=== PATIENT | male | born 1990 | race Caucasian/White ===

== ENCOUNTER 2016-07-22 11:00 | Inpatient (IN) | payer OTHER ==
--- NOTE | ~2016-07-22 | PN ---
Unit #: [id number] #: [id number] Patient: DAMIAN OWENS [id number] [facility] [address] [place] [address] [id number] MR#: [id number] NAME: DAMIAN OWENS ROOM: P176 Age: 26 Sex: M Admission Date: 07/22/2016 : 1990 Attending Physician: Dorothea Bryson M.D. Admitting Physician: Dorothea Bryson M.D. Primary Care Physician: [place] Doctor Not In System [facility] PROGRESS NOTES DATE OF SERVICE: 07/24/2016 SUBJECTIVE Mr. Owens is a 26-year-old white male with substance abuse and mood disorder, who was seen today and chart was reviewed and case was discussed with the staff. He was seen to be anxious, restless, withdrawn, unkempt, disheveled, and seclusive to himself and reports that he is not feeling good and "all I want is sleep." However, he has not shown any agitation or aggression and has been taking the medications and tolerating them fairly well with no reported side effects. MENTAL STATUS EXAMINATION Young white male who was casually dressed with fair personal hygiene, appears to be in no acute distress or discomfort. He was awake and alert on interaction with intact orientation. His mood was anxious with a congruent affect. He denies any suicidal or homicidal ideations, and also denies any auditory or visual hallucinations. His insight and judgment remain slightly impaired. TREATMENT PLAN 1. We will continue him on his current treatment protocol. We will monitor his response to the medications and make further adjustments as needed. 2. We will continue to follow up. Dictated by... Marina Valle/christian TD: 07/24/2016 07:33 JOB #: [id number] Unit #: [id number] #: [id number] Patient: DAMIAN OWENS PROGRESS NOTES Page 1 of 1 X Dorothea Bryson MD X PROGRESS NOTE
--- NOTE | ~2016-07-22 | PN ---
Unit #: [id number] #: [id number] Patient: DAMIAN OWENS [id number] [facility] [address] [place] [address] [id number] MR#: [id number] NAME: DAMIAN OWENS ROOM: P180 Age: 26 Sex: M Admission Date: 07/22/2016 : 1990 Attending Physician: Dorothea Bryson M.D. Admitting Physician: Dorothea Bryson M.D. Primary Care Physician: Generic Doctor Not In System [facility] PROGRESS NOTES DATE OF SERVICE: 07/27/2016 SUBJECTIVE Mr. Owens is a 26-year-old white male, who was seen today and chart was reviewed, and case was discussed with the staff. He has been anxious, withdrawn, and reports doing better on his detox and complaining of persistent depressive symptoms with feelings of hopelessness and low energy, and Celexa has been initiated, but he stated that he does not feel like it is helping that he needs something just to increase in energy level and has been requesting the stimulating antidepressant. MENTAL STATUS EXAMINATION Young white male, who was casually dressed with fair personal hygiene, appears to be in no acute distress or discomfort. He was awake and alert on interaction with intact orientation. His mood was anxious and depressed with a congruent affect. His speech was slow and goal directed. He reports he denies any suicidal or homicidal ideations and also denies any auditory or visual hallucinations. His insight and judgment remain slightly impaired. TREATMENT PLAN 1. We will continue him on his current medications and treatment protocol. We will monitor his response to medications and make further adjustments as needed. 2. We will continue to follow up. Dictated by... Marina Valle/christian TD: 07/27/2016 22:16 JOB #: [id number] Unit #: [id number] #: [id number] Patient: DAMIAN OWENS PROGRESS NOTES Page 1 of 1 X Dorothea Bryson MD PROGRESS NOTE
--- NOTE | ~2016-07-22 | PA ---
Unit #: [id number] #: [id number] Patient: DAMIAN OWENS [id number] [facility] [address] [place] [address] [id number] MR#: [id number] NAME: DAMIAN OWENS ROOM: P176 Age: 26 Sex: M Admission Date: 07/22/2016 : 1990 Date of Assessment: 07/22/2016 Attending Physician: Dorothea Bryson M.D. Admitting Physician: Dorothea Bryson M.D. Primary Care Physician: Generic Doctor Not In System PSYCHIATRIC ASSESSMENT DATE OF SERVICE 07/22/2016. IDENTIFYING DATA Mr. Owens is a 26-year-old, single, white male, who is a resident of [place], [place], and he is known to us from previous encounter, was self referred to the hospital on a voluntary basis. CHIEF COMPLAINT "To finish what I started." HISTORY OF PRESENT ILLNESS Mr. Owens is a 26-year-old white male with a history of mood disorder, who presented and was seen to be irritable, but cooperative and answered questions appropriately and was endorsing suicidal ideation and plan to finish what he started and he will not contract for safety upon presentation and denied any homicidal ideations, though does report increasing depression, anxiety, agitation, irritability, feelings of hopelessness and helplessness, and suicidal ideations and stated that he more recently was employed through a travel in [employer] and reports that he stayed in the [place] area and the [employer] moved on and does report feelings of hopelessness and having attempted suicide a couple of weeks ago via overdose on methamphetamine. He was seen to be a significant danger to self and as such, recommendation for inpatient level of care for safety and stabilization was made and the patient was transferred to us. SUBSTANCE ABUSE HISTORY The patient reports history of opioid and methamphetamine abuse, and reports using IV methamphetamine with the last use a couple of days ago. He denies any recent opioid abuse. PAST PSYCHIATRIC HISTORY The patient has not had any prior inpatient or outpatient psychiatric treatment. Review of the medical records indicate that he is currently not active in any treatment program, and is not seeing a psychiatrist, and is not taking any psychotropic medications. PAST MEDICAL HISTORY Gastroesophageal reflux disease and asthma. ALLERGIES No known medication allergies. Unit #: [id number] #: [id number] Patient: DAMIAN OWENS PERSONAL AND SOCIAL HISTORY A 26-year-old white male, who reports that he is single, unemployed, and has been living alone and has poor social support system. MENTAL STATUS EXAMINATION Young white male, who was casually dressed with fair personal hygiene, appears to be in no acute distress or discomfort. He was awake and alert on interaction with intact orientation to time, place, and person. His mood was anxious and depressed with a congruent affect. His speech was slow and goal directed. He reports having suicidal ideations, but denies any homicidal ideations, and also denies any auditory or visual hallucinations. His insight and judgment remain significantly impaired. DIAGNOSTIC IMPRESSION Psychiatric: Major depressive disorder, recurrent, moderate, without psychotic features. Medical: Gastroesophageal reflux disease, asthma. Stressors: Moderate psychosocial stressors. TREATMENT PLAN 1. The patient has presented with a history of mood disorder, and has been decompensating and will need inpatient hospitalization for safety and stabilization. We will start him back on his home medications. We will adjust the medications and monitor response. 2. Supportive therapy was provided to the patient. 3. Safe, structured, and nourishing environment will be provided. ESTIMATED LENGTH OF STAY 5 to 7 days. ABILITY TO HELP SELF Limited. WILLINGNESS TO HELP SELF The patient appears to be willing to help self. STRENGTHS 1. Communicative. 2. Cooperative. PROBLEMS 1. Chronic dysphoric symptoms. 2. Poor social support system. DISCHARGE CRITERIA This will be contingent upon the patient's ability to show resolution of his depression and anxiety as well as his ability to stay safe to himself, particularly after discharge from the hospital. Dictated by... Marina Valle/christian Unit #: [id number] #: [id number] Patient: DAMIAN OWENS TD: 07/23/2016 07:10 JOB #: [id number] PSYCHIATRIC ASSESSMENT Page 1 of 1 X Dorothea Bryson MD X PSYCHIATRIC ASSESSMENT
--- NOTE | ~2016-07-22 | CO ---
Unit #: [id number] #: [id number] Patient: CLARK OWENS [id number] [place] [address] [id number] I MR#: [id number] NAME: CLARK OWENS ROOM: P180 Age: 26 Sex: M Admission Date: 07/22/2016 : 1990 Attending Physician: Dorothea Bryson M.D. Primary Care Physician: Generic Doctor Not In System Consultation Date: 07/23/2016 CONSULTATION REPORT SUBJECTIVE Clark is a 26-year-old who complained of tooth pain. He has poor dental hygiene and admits he has not seen a dentist in years. He was treated with Hurricaine gel for tooth and gum pain. No abscesses were noted on exam. He knows to follow up with PCP/dentist. Dictated by... Larisa Covington P.A.-C. for Marina Gutiérrez/christian TD: 07/31/2016 22:15 JOB #: [id number] CONSULTATION REPORT Page 1 of 1 X Larisa Covington CONSULTATION REPORT
--- NOTE | ~2016-07-22 | PN ---
Unit #: [id number] #: [id number] Patient: DAMIAN OWENS [id number] [facility] [address] [place] [address] [id number] I MR#: [id number] NAME: DAMIAN OWENS ROOM: 76 Age: 26 Sex: M Admission Date: 07/22/2016 : 1990 Attending Physician: Dorothea Bryson M.D. Admitting Physician: Dorothea Bryson M.D. Primary Care Physician: Generic Doctor Not In System [facility] PROGRESS NOTES DATE July 25, 2016 DISCUSSION Mr. Owens is a 26-year-old white male, who was seen today and chart was reviewed and the case was discussed with the staff. He has been anxious, withdrawn, and rather seclusive to himself. Meanwhile, he has been cooperative with the treatment recommendations and he has been taking the medications and tolerating them fairly well with no reported side effects. MENTAL STATUS EXAMINATION Young white male, who was casually dressed with fair personal hygiene and appears to be in no acute distress or discomfort. He was awake and alert on interaction with intact orientation. His mood is anxious with a congruent affect. He denies any suicidal or homicidal ideations. His insight and judgment remain slightly impaired. TREATMENT PLAN 1. We will continue him on his current treatment protocol, and detox medications, will monitor his response, and make further adjustments as needed. 2. We will continue to followup. Dictated by... Marina Valle/masood TD: 07/27/2016 06:50 JOB #: [id number] Unit #: [id number] #: [id number] Patient: DAMIAN OWENS PROGRESS NOTES Page 1 of 1 X Dorothea Bryson MD X PROGRESS NOTE
--- NOTE | ~2016-07-22 | DS ---
Unit #: [id number] #: [id number] Patient: DAMIAN OWENS [id number] [facility] [address] [place] [address] [id number] MR#: [id number] NAME: DAMIAN OWENS ROOM: P180 Age: 26 Sex: M Admission Date: 07/22/2016 : 1990 Discharge Date: 07/28/2016 Attending Physician: Dorothea Bryson M.D. Primary Care Physician: Generic Doctor Not In System DISCHARGE SUMMARY IDENTIFYING DATA Mr. Owens is a 26-year-old single white male who is a resident of [place], [place], and he is known to us from previous encounter and was self-referred to the hospital on a voluntary basis. DISCHARGE DIAGNOSES Psychiatric: Major depressive disorder, recurrent, moderate, without psychotic features; opioid abuse, moderate; methamphetamine abuse, moderate. Medical: Gastroesophageal reflux disease, asthma. Stressors: Mild psychosocial stressors. HISTORY OF PRESENT ILLNESS Please see initial psychiatric evaluation for details. PAST PSYCHIATRIC HISTORY Please see initial psychiatric evaluation for details. PAST MEDICAL HISTORY Please see initial psychiatric evaluation for details. HOSPITAL COURSE The patient was admitted to the adult chemical dependency unit at [facility] and was oriented to the hospital environment. Routine p.r.n. medications were initiated, and he was started back on his home medications and he was complaining of being having no energy and being very depressed and anxious and initially Celexa was started without much benefit and it was then switched to Wellbutrin as the patient requested something to stimulate him and help him have more energy. He was taking the medications regularly and was tolerating them fairly well and was able to show a fairly decent and therapeutic response, and as such, it was decided that he will be discharged home and will continue treatment on an outpatient basis. DISCHARGE MEDICATIONS Wellbutrin XL 150 mg in the morning for depression. DISCHARGE CONDITION Stable. PROGNOSIS Fair. Unit #: [id number] #: [id number] Patient: DAMIAN OWENS Dictated by... Marina Valle/christian TD: 07/28/2016 07:00 JOB #: [id number] DISCHARGE SUMMARY Page 1 of 1 X Dorothea Bryson MD DISCHARGE SUMMARY
--- NOTE | ~2016-07-22 | PN ---
Unit #: [id number] #: [id number] Patient: DAMIAN OWENS [id number] [facility] [address] [place] [address] [id number] MR#: [id number] NAME: DAMIAN OWENS ROOM: P176 Age: 26 Sex: M Admission Date: 07/22/2016 : 1990 Attending Physician: Dorothea Bryson M.D. Admitting Physician: Dorothea Bryson M.D. Primary Care Physician: Generic Doctor Not In System [facility] PROGRESS NOTES DATE OF SERVICE: 07/26/2016 SUBJECTIVE Mr. Owens is a 26-year-old white male, who was seen today and chart was reviewed and the case was discussed with the staff. He has been anxious, withdrawn, and rather seclusive to himself. Meanwhile, he has been cooperative with the treatment recommendations and has been taking the medications and tolerating them fairly well with no reported side effects. MENTAL STATUS EXAMINATION Young white male, who was casually dressed with a fair personal hygiene, appears to be in no acute distress or discomfort. He is awake and alert on orientation with intact orientation. His mood was anxious with a congruent affect. He denies any suicidal or homicidal ideations and also denies any auditory or visual hallucinations. His insight and judgment remain slightly impaired. TREATMENT PLAN 1. We will continue him on his current treatment protocol. We will monitor his response and make further adjustments as needed. 2. We will continue to follow up. Dictated by... Marina Valle/christian TD: 07/26/2016 13:55 JOB #: [id number] [facility] PROGRESS NOTES Page 1 of 1 X Dorothea Bryson MD PROGRESS NOTE
--- NOTE | ~2016-07-22 | HP ---
Unit #: [id number] #: [id number] Patient: CLARK OWENS [id number] [place] [address] [id number] MR#: [id number] NAME: CLARK OWENS ROOM: P176 Age: 26 Sex: M Admission Date: 07/22/2016 : 1990 Attending Physician: Dorothea Bryson M.D. Admitting Physician: Dorothea Bryson M.D. Primary Care Physician: Generic Doctor Not In System HISTORY AND PHYSICAL HISTORY OF PRESENT ILLNESS Clark is a 26-year-old admitted to [facility] because of his drug use. He shoots meth. PAST MEDICAL HISTORY Long history of illicit substance abuse to include IV methamphetamine. PAST SURGICAL HISTORY Left femur. ALLERGIES No known drug allergies. SOCIAL HISTORY Smokes one pack per day. Denies alcohol. Admits to a long history of illicit substance abuse to include IV methamphetamine. FAMILY HISTORY Medically noncontributory. REVIEW OF SYSTEMS CONSTITUTIONAL: No fever or chills. HEENT: Denies any sore throat, ear pain or runny nose. CARDIOVASCULAR: Denies chest pain, irregular heart rhythm or palpitations. CHEST: Denies shortness of breath or cough. No hemoptysis. GASTROINTESTINAL: Denies nausea, vomiting, diarrhea or chronic constipation. ENDOCRINE: Denies history of increased thirst or urination. No recent significant weight loss or gain. GENITOURINARY: Denies dysuria, frequency, or hematuria. SKIN: Denies any rashes. HEMATOLOGIC: Denies history of increased bleeding or bruising. MUSCULOSKELETAL: Denies any hot, swollen joints. No generalized muscle pain. NEUROLOGIC: Denies problems with vision or speech. No frequent, severe headaches. No numbness, tingling or weakness in any extremities. Denies loss of bladder or bowel control. CURRENT MEDICATIONS 1. Desyrel p.r.n. 2. Milk of magnesia p.r.n. 3. Maalox p.r.n. 4. Tylenol p.r.n. Unit #: [id number] #: [id number] Patient: CLARK OWENS PHYSICAL EXAMINATION GENERAL: Alert, well nourished, and in no apparent distress. VITAL SIGNS: Blood pressure 122/72, heart rate 80, respirations 16, temperature 98.6, weight 145 pounds, and height 5 feet, 9 inches. SKIN: Warm and dry without rash or lesion. HEENT: Normocephalic. TMs not viewed. Oral and nasal passages clear. Conjunctivae clear. PERRLA. EOMs intact. NECK: Supple without lymphadenopathy or thyromegaly. HEART: Regular rate and rhythm without murmur. LUNGS: Clear. ABDOMEN: Soft, nontender. : Not done. EXTREMITIES: No evidence of cyanosis, clubbing or edema. Moves all without focal deficit. NEUROLOGICAL: Grossly within normal limits. Cranial Nerves: II: Visual nielsen are intact. III, IV AND : Extraocular movements are intact. Pupils are equal, round and reactive to light. V: Facial sensation is grossly normal. VII: Facial movements and expression are normal. VIII: Auditory acuity grossly intact. IX, X: Uvula is midline. Phonation is normal. XI: Patient shrugs shoulders and turns head normally. XII: Tongue protrudes in the midline. Sensory and Motor Function: Sensory and motor sensation is grossly normal. Motor: moves all extremities well. Coordination: Gait is normal. Deep Tendon Reflexes: Intact. IMPRESSION Psychiatric admission. RECOMMENDATIONS PSYCHIATRIC: Per psychiatrist. MEDICAL: I see no contraindication to participating in facility's activities. MEDICAL PROGNOSIS Good. MEDICAL CONDITION Stable. Dictated by... Larisa Covington P.A.-C. for Marina Gutiérrez/dwight TD: 07/23/2016 09:43 JOB #: [id number] Unit #: [id number] #: [id number] Patient: CLARK OWENS HISTORY AND PHYSICAL Page 1 of 1 X Larisa Covington HISTORY AND PHYSICAL
[2016-07-23 10:23] LABS: URINE APPEARANCE CLEAR; URINE BILIRUBIN NEG (NEG); URINE BLOOD NEG (NEG); URINE COLOR YELLOW; URINE GLUCOSE NEG (NEG); URINE KETONE NEG (NEG); URINE LEUKOCYTE ESTERASE NEG (NEG); URINE NITRATE NEG (NEG); URINE PH 7.5 (5-8); URINE PROTEIN NEG (NEG); URINE SPECIFIC GRAVITY 1.014 (1.003-1.035); URINE UROBILINOGEN 0.2 MG/DL (NEG)
== END 2016-07-28 09:36 | DRG 885 ==
LOC: P1E 14:51
PROVIDERS: Psychiatry & Neurology Psychiatry
PROC: HZ2ZZZZ Detoxification Services for Substance Abuse Treatment (ICD-10-PCS; principal; 2016-07-22)
DX: F33.1 Major depressive disorder, recurrent, moderate (principal); R45.851 Suicidal ideations; F11.20 Opioid dependence, uncomplicated; F15.20 Other stimulant dependence, uncomplicated; K21.9 Gastro-esophageal reflux disease without esophagitis; J45.909 Unspecified asthma, uncomplicated; F17.210 Nicotine dependence, cigarettes, uncomplicated
CPT/HCPCS: 81003